=== PATIENT | female | born 2000 | race Caucasian/White ===

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

== ENCOUNTER 2019-04-06 19:26 | Observation (INO) | payer OTHER ==
[~2019-04-06] VITALS: Ht 144.8 cm; Wt 40.8 kg
--- NOTE | 2019-04-06 19:49 | NUR ---
PT TAKEN TO L&D AFTER TRIAGE
[2019-04-06] MEDS ORDERED: PREN-380 PO (20:37)
[2019-04-06] MEDS ORDERED: VITA1TAB44 PO (20:37)
[2019-04-06 20:48] VITALS: BP 104/67
== END 2019-04-06 23:11 | disposition home or self-care (01) ==
LOC: MED 19:26 → MLD 19:57
PROVIDERS: ADMIT Obstetrics & Gynecology; ATTEND Obstetrics & Gynecology
DX: O26.893 Other specified pregnancy related conditions, third trimester (principal); R10.2 Pelvic and perineal pain; Z3A.23 23 weeks gestation of pregnancy; Z79.899 Other long term (current) drug therapy
CPT/HCPCS: 87086; 87210; 99281; G0378; 81000

== ENCOUNTER 2019-04-11 03:10 | Emergency (ER) | payer OTHER ==
[~2019-04-11] VITALS: Ht 144.8 cm; Wt 40.8 kg
[~2019-04-11 03:10] MED LIST changes: -HYDR-5122 PO; +PREN-380 PO; +VITA1TAB44 PO
--- NOTE | 2019-04-11 03:19 | NUR ---
PT TAKEN TO BED 4
--- NOTE | 2019-04-11 03:25 | NUR ---
PT TAKEN TO OB AFTER TRIAGE
[2019-04-11 04:35] VITALS: BP 104/66
--- NOTE | 2019-04-11 04:35 | NUR ---
PT RETURN FROM OB TO BED [address] HORNER
[2019-04-11 04:43] LABS: BASOPHILS % (AUTO) 0.4 % (0.0-2.0); EOSINOPHILS # (AUTO) 0.1 K/uL (0-0.4); EOSINOPHILS % (AUTO) 0.7 % (0.0-4.0); HEMATOCRIT 36.5 % (36-48); HEMOGLOBIN 12.1 g/dL (12.0-16.0); LYMPHOCYTES # (AUTO) 2.6 K/uL (2.5-16.5); LYMPHOCYTES % (AUTO) 20.1 % (20.5-51.1); MEAN CORPUSCULAR HEMOGLOBIN 31 pg (27-31); MEAN CORPUSCULAR HGB CONC 33 g/dL (33-37); MONOCYTES # (AUTO) 0.9 K/uL (0.8-1.0); MONOCYTES % (AUTO) 7.1 % (1.7-9.3); NEUTROPHILS # (AUTO) 9.4 K/uL (1.8-7.7); NEUTROPHILS % (AUTO) 71.7 % (42.2-75.2); PLATELET COUNT (AUTO) 228 K/uL (140-450); RED BLOOD CELL COUNT(AUTO) 3.92 MIL/uL (4.20-5.40); RED CELL DISTRIBUTION WIDTH 14.2 % (11.6-13.7); WHITE BLOOD COUNT (AUTO) 13.1 K/uL (4.5-11.0)
--- NOTE | 2019-04-11 04:48 | NUR ---
PATIENT ASSESSMENT COMPLETED AT THIS TIME. PATIENT SITTING UP IN BED, ON MONITOR, IN GOWN. PATIENT GIVEN BLANKET. BED LOW AND LOCKED.
[2019-04-11 05:02] VITALS: BP 111/62
--- NOTE | 2019-04-11 05:04 | NUR ---
FLU SWAB COLLECTED AND SENT TO LAB
[2019-04-11 05:15] LABS: APPEARANCE,URINE SL CLOUDY (CLEAR); BILIRUBIN,URINE NEGATIVE (NEGATIVE); BLOOD, URINE NEGATIVE (NEGATIVE); COLOR,URINE YELLOW (YELLOW); LEUKOCYTE ESTERASE ,URINE 3+ (NEGATIVE); NITRITE, URINE NEGATIVE (NEGATIVE); PH,URINE 7.5 (5.0-9.0); UGLUCOSE NEGATIVE (NEGATIVE)
[2019-04-11 05:18] LABS: ANION GAP 15.8 (8-16); POTASSIUM 3.8 mmol/L (3.5-5.1)
[2019-04-11 05:19] LABS: ALBUMIN 3.1 g/dL (3.4-5.0); CREATININE 0.5 mg/dL (0.6-1.3); TOTAL BILIRUBIN 0.9 mg/dL (0.0-1.0)
[2019-04-11 05:26] LABS: RBC,URINE 0-5 /HPF (0-5); WBC,URINE 60-80 /HPF (0-5)
[2019-04-11] MEDS ORDERED: NITROFURANTOIN 100 MG CAP PO ONE (05:45)
[2019-04-11 05:54] VITALS: BP 96/55
== END 2019-04-11 05:55 | disposition home or self-care (01) ==
LOC: MED 03:10 → MLD 03:30 → UNDOADMOB 03:30 → EDSTATUS 04:17 → MED 05:55
DX: O23.42 Unspecified infection of urinary tract in pregnancy, second trimester (principal); O26.892 Other specified pregnancy related conditions, second trimester; R06.00 Dyspnea, unspecified; Z79.899 Other long term (current) drug therapy
CPT/HCPCS: 36415; 80053; 81000; 81001; 85025; 87086; 87804; 99283

== ENCOUNTER 2019-05-07 16:50 | Observation (INO) | payer OTHER ==
[~2019-05-07] VITALS: Ht 144.8 cm; Wt 44.7 kg
[2019-05-07 17:05] VITALS: BP 100/33
--- NOTE | 2019-05-07 17:09 | NUR ---
PT TO BED 9 WITH STEADY GAIT
--- NOTE | 2019-05-07 17:13 | NUR ---
FLU SWAB COLLECTED
--- NOTE | 2019-05-07 17:14 | NUR ---
PER DR GONZALES, PT IS TO FIRST BE SENT TO LABOR AND DELIVERY AFTER FLU SWAB, THEN COME BACK FOR COUGH AND CONGESTION
--- NOTE | 2019-05-07 17:16 | NUR ---
Patient transferred to L&D via wheelchair by nurse.
[2019-05-07 18:38] VITALS: BP 107/66
--- NOTE | 2019-05-07 19:09 | NUR ---
RECEIVED REPORT FROM SHANE WORTHY. TRANSFER OF CARE AT THIS TIME. PT RECEIVED FROM L&D. CLEARED BY PHU PAULINO. HEART TONES 150 BPM REPORTED BY ZAYNAB.
--- NOTE | 2019-05-07 19:45 | NUR ---
PT STATES SHE NEEDS TO TAKE HER LOVENOX MEDICATION AT 2020 AND IS WONDERING IF SHE WILL BE DISCHARGED BEFORE THEN. EXPLAINED TO PT THAT THE DOCTOR WILL SEE PATIENTS IN ORDER OF PRIORITY AND THERE IS NO KNOWN WAIT TIME. ENCOURGAED PT TO WAIT TO BE SEEN BY DOCTOR. PT VEBRALIZED UNDERSTANDING.
--- NOTE | 2019-05-07 20:10 | NUR ---
PT IS ASKING IF SHE AND HER CAN LEAVE SO SHE CAN GO HOME TO TAKE LOVENOX MEDICATION. ASKED IF HE CAN BRING RX TO ER SO SHE CAN TAKE IT HER DUE TO ERMD INVOLVED IN EMERGENCY AT THIS TIME. PT STATES THEY WILL DISCUSS.
--- NOTE | 2019-05-07 20:35 | NUR ---
PT STATES SHE WILL LEAVE BECAUSE SHE HAS AN APPT WITH HER OBGYN TOMORROW AND HER MAIN CONCERN WAS CHECKING THE BABY.
--- NOTE | 2019-05-07 20:40 | NUR ---
PATIENT LEFT WITHOUT BEING SEEN BY . NO FURTHER CARE PROVIDED FOR PATIENT. DR. ROSA MADE AWARE.
--- NOTE | 2019-05-08 07:59 | NUR ---
PATIENT HAS BEEN SCREENED AND CATEGORIZED LOW NUTRITION RISK. PATIENT WILL BE SEEN WITHIN 7 DAYS OF ADMISSION. 05/14/[address]
== END 2019-05-07 19:10 | disposition home or self-care (01) ==
LOC: MED 16:50 → MLD 17:20
PROVIDERS: ADMIT Obstetrics & Gynecology; ATTEND Obstetrics & Gynecology
DX: O36.8120 Decreased fetal movements, second trimester, not applicable or unspecified (principal); Z3A.27 27 weeks gestation of pregnancy; Z79.899 Other long term (current) drug therapy
CPT/HCPCS: 87086; 87804; 99285; G0378; 99281